=== PATIENT | female | born 2000 | race Caucasian/White ===

== ENCOUNTER → 2022-03-24 | Outpatient (CLI) | payer OTHER ==
[~2022-03-24] MED LIST: BENADRYL25 MG PO; FLONASE 0.05% N16 GM; IBUPROFEN600 MG PO; ZITHROMAX250 MG PO; ZYRTEC10 MG PO
== END ==
LOC: KOH-I 14:21
DX: E04.9 Nontoxic goiter, unspecified (principal)
CPT/HCPCS: 76536